=== PATIENT | female | born 1970 ===

== ENCOUNTER 2017-09-08 08:51 | Emergency (ER) | payer OTHER ==
[~2017-09-08] VITALS: Ht 165.1 cm; Wt 55.3 kg
[2017-09-08] MEDS ORDERED: SKELAXIN800 MG PO (11:26)
[2017-09-08] MEDS ORDERED: CELEBREX200MG PO (11:26)
== END 2017-09-08 12:05 | disposition home or self-care (01) ==
LOC: ER 08:51
DX: S93.402A Sprain of unspecified ligament of left ankle, initial encounter (principal); S13.4XXA Sprain of ligaments of cervical spine, initial encounter; X50.3XXA Overexertion from repetitive movements, initial encounter; Y93.89 Activity, other specified; Y92.89 Other specified places as the place of occurrence of the external cause; Y99.8 Other external cause status

== ENCOUNTER 2018-02-26 09:24 | Emergency (ER) | payer OTHER ==
[~2018-02-26] VITALS: Ht 165.1 cm; Wt 56.7 kg
[~2018-02-26 09:24] MED LIST: CELEBREX200MG PO; SKELAXIN800 MG PO
== END 2018-02-26 12:55 | disposition home or self-care (01) ==
LOC: ER 09:24
DX: M75.52 Bursitis of left shoulder (principal)

== ENCOUNTER 2024-12-03 14:36 | Outpatient (CLI) | payer OTHER | END 2024-12-03 14:38 | disposition home or self-care (01) | LOC: RAD 14:36 | PROVIDERS: ATTEND Family Medicine | DX: M79.644 Pain in right finger(s) (principal); M79.645 Pain in left finger(s) ==